=== PATIENT | male | born 1980 | race African-American/Black ===

== ENCOUNTER 2019-10-06 22:27 | Emergency (ER) | payer OTHER ==
[2019-10-06] MEDS ORDERED: ONDANSETRON 4 MG/2 ML VIAL ONE (23:03)
[2019-10-06] MEDS ORDERED: MECLIZINE HCL 12.5 MG TAB ONE (23:03)
[2019-10-06] MEDS ORDERED: NA CHLORIDE 0.9% 1,000 ML ONE (23:03)
[2019-10-06 23:08] LABS: Absolute Lymphocytes (CBC) 3.2 K/uL (0.7-4.9); Basophils % 0.8 % (0-1.3); Hematocrit 46.9 % (39.6-49.0); Lymphocytes % 30.7 % (15.3-44.8); MPV 8.1 fL (7.6-11.3)
[2019-10-06 23:15] LABS: Protime INR 0.95
[2019-10-06 23:24] LABS: ALT/SGPT 47 U/L (12-78); AST/SGOT 29 U/L (15-37); Albumin 4.4 g/dL (3.4-5.0); Alkaline Phosphatase 79 U/L (45-117); BUN Blood Urea Nitrogen 41 mg/dL (7-18); Bicarbonate 23 mmol/L (21-32); Bilirubin Direct 0.2 mg/dL (0-0.2); Bilirubin Total 0.6 mg/dL (0.2-1.0); Creatine Phosphokinase 869 U/L (39-308); Glucose Level 109 mg/dL (74-106); Magnesium 2.7 mg/dL (1.8-2.4); NT PRO-BNP 30 pg/mL (<125); Potassium 3.5 mmol/L (3.5-5.1); Protein, Total 8.3 g/dL (6.4-8.2); Sodium Level 134 mmol/L (136-145); Troponin (Emerg Dept Use Only) < 0.02 ng/mL (0.0-0.045)
[2019-10-07] MEDS ORDERED: NA CHLORIDE 0.9% 2,000 ML ONE (00:26)
[2019-10-07] MEDS ORDERED: NA CHLORIDE 0.9% 1,000 ML ONE (01:14)
[2019-10-07 02:19] LABS: Potassium 3.3 mmol/L (3.5-5.1)
--- NOTE | 2019-10-07 02:33 | EDPHYS ---
Physician Documentation [facility] Name: Skye Salgado Age: 39 yrs Sex: Male : 1980 Arrival Date: 10/06/2019 Time: 22:28 Bed 2 Private MD: ED Physician Robby Crooks HPI: 10/05 23:17 This 39 yrs old Black Male presents to ER via Ambulatory with complaints of Dizziness, jmm Vomiting, Diarrhea. 23:17 The patient presents with dizziness, lightheadedness, feeling off balance. Onset: The jmm symptoms/episode began/occurred acutely, 12 hour(s) ago. Modifying factors: The symptoms are alleviated by nothing. Associated signs and symptoms: Pertinent positives: nausea, palpitations, vomiting, diarrhea. The patient has experienced a previous episode. Patient states symptoms initially occurred while working outside. . Historical: - Allergies: 22:35 No Known Allergies; jd3 - Home Meds: 22:35 None [Active]; jd3 - PMHx: 22:35 None; jd3 - PSHx: 22:35 None; jd3 - Immunization history:: Adult Immunizations up to date. - Social history:: Smoking status: Patient reports the use of cigarette tobacco products, smokes one pack cigarettes per day. ROS: 23:17 Cardiovascular: Negative for chest pain, palpitations, and edema, Respiratory: Negative jmm for shortness of breath, cough, wheezing, and pleuritic chest pain. 23:17 Constitutional: Positive for fatigue. 23:17 Abdomen/GI: Positive for vomiting, diarrhea. 23:17 Neuro: Positive for dizziness. 23:17 All other systems are negative. Exam: 23:17 Constitutional: This is a well developed, well nourished patient who is awake, alert, jmm and in no acute distress. Head/Face: atraumatic. Eyes: EOMI, no conjunctival erythema appreciated ENT: Moist Mucus Membranes Neck: Trachea midline, Supple Chest/axilla: Normal chest wall appearance and motion. Cardiovascular: Regular rate and rhythm. No edema appreciated Respiratory: Normal respirations, no respiratory distress appreciated Abdomen/GI: Non distended, soft Back: Normal ROM Skin: General appearance color normal MS/ Extremity: Moves all extremities, no obvious deformities appreciated, no edema noted to the lower extremities Neuro: Awake and alert, normal gait Psych: Behavior is normal, Mood is normal, Patient is cooperative and pleasant 23:17 ECG was reviewed by the Attending Physician. Vital Signs: 22:34 BP 126 / 86; Pulse 104; Resp 19 S; Temp 98.3(TE); Pulse Ox 100% on R/A; Weight 95.25 kg jd3 (R); Height 6 ft. 0 in. (182.88 cm) (R); Pain 0/10; 10/06 01:53 BP 135 / 64; Pulse 76; Resp 18; Temp 98; Pulse Ox 98% on R/A; ea 02:30 BP 154 / 90; Pulse 58; Resp 18; Pulse Ox 100% ; ea 10/05 22:34 Body Mass Index 28.48 (95.25 kg, 182.88 cm) jd3 MDM: 10/05 22:50 Patient medically screened. [facility] 10/06 02:27 Data reviewed: vital signs, nurses notes. Counseling: I had a detailed discussion with [facility] the patient and/or guardian regarding: the historical points, exam findings, and any diagnostic results supporting the discharge/admit diagnosis, lab results, radiology results, the need for outpatient follow up, to return to the emergency department if symptoms worsen or persist or if there are any questions or concerns that arise at home. 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 Most likely dehydration. Imaging studies negative. Creatinine has improved with IVF. Patient is able to tolerate PO. I discussed the patient with Dr. Beach whom declined admission and stated the patient can follow up with pcp. Patient is given strict return precautions. Patient understood and agrees with the plan of care. . 10/05 22:51 Order name: Basic Metabolic Panel; Complete Time: 23:28 [facility] 10/05 22:51 Order name: CBC with Diff; Complete Time: 23:10 [facility] 10/05 22:51 Order name: LFT's; Complete Time: 23:28 [facility] 10/05 22:51 Order name: Magnesium; Complete Time: 23:28 [facility] 10/05 22:51 Order name: NT PRO-BNP; Complete Time: 23:28 [facility] 10/05 22:51 Order name: PT-INR; Complete Time: 23:28 [facility] 10/05 22:51 Order name: Troponin (emerg Dept Use Only); Complete Time: 23:28 [facility] 10/05 22:51 Order name: XRAY Chest (1 view) [facility] 10/05 22:51 Order name: CPK; Complete Time: 23:28 [facility] 10/05 22:51 Order name: CT Head Brain wo Cont [facility] 10/05 23:35 Order name: CT Stone Protocol [facility] 10/06 01:17 Order name: BMP; Complete Time: 02:26 [facility] 10/05 22:51 Order name: EKG; Complete Time: 22:52 [facility] 10/05 22:51 Order name: Cardiac monitoring; Complete Time: 22:56 [facility] 10/05 22:51 Order name: EKG - Nurse/Tech; Complete Time: 22:56 [facility] 10/05 22:51 Order name: IV Saline Lock; Complete Time: 22:56 [facility] 10/05 22:51 Order name: Labs collected and sent; Complete Time: 22:56 [facility] 10/05 22:51 Order name: O2 Per Protocol; Complete Time: 22:56 [facility] 10/05 22:51 Order name: O2 Sat Monitoring; Complete Time: 22:56 [facility] EC/21 23:17 Rate is 41 beats/min. Rhythm is regular. QRS [place] is Normal. CA interval is normal. QRS jmm interval is normal. QT interval is normal. No Q waves. T waves are Normal. No ST changes noted. Reviewed by me. Administered Medications: 23:03 Drug: NS 0.9% 1000 ml Route: IV; Rate: 1 bolus; Site: left antecubital; mg2 10/06 01:52 Follow up: Response: No adverse reaction; IV Status: Completed infusion; IV Intake: ea 1000ml 10/05 23:03 Drug: Zofran (Ondansetron) 4 mg Route: IVP; Site: left antecubital; mg2 10/06 00:47 Follow up: Response: No adverse reaction 10/05 23:03 Drug: Meclizine 50 mg Route: PO; mg2 10/06 00:47 Follow up: Response: No adverse reaction ea 00:20 Drug: NS 0.9% 1000 ml Route: IV; Rate: 1 bolus; Site: left antecubital; mg2 01:53 Follow up: Response: No adverse reaction; IV Status: Completed infusion; IV Intake: ea 1000ml 01:11 Drug: NS 0.9% 1000 ml Route: IV; Rate: 1 bolus; Site: left antecubital; ea 02:43 Follow up: Response: No adverse reaction; IV Status: Completed infusion; IV Intake: ea 1000ml Disposition: 04:45 Co-signature as Attending Physician, Robby cox Disposition: 10/07/19 02:32 Discharged to Home. Impression: Vomiting, Diarrhea, unspecified, Dehydration, Acute Kidney Injury. - Condition is Stable. - Discharge Instructions: Food Choices to Help Relieve Diarrhea, Adult, Dehydration, Adult, Nausea and Vomiting, Adult. - Prescriptions for Zofran ODT 4 mg Oral tablet,disintegrating - place 1 tablet by TRANSLINGUAL route every 4-6 hours; 20 tablet. - Medication Reconciliation Form, Thank You Letter, Antibiotic Education, Prescription Opioid Use form. - Follow up: Sidney Winston DO; When: 2 - 3 days; Reason: Recheck today's complaints, Continuance of care, Re-evaluation by your physician. Signatures: Dispatcher [employer] EDMS Robby Crooks MD MD pkHaroon Walter PA PA jmm Antunez, Elena, RN RN ea Davies, Jonathon, RN RN jCesar Mercer RN RN mg2 Corrections: (The following items were deleted from the chart) 02:34 02:30 ED course: Imaging studies negative. Creatinine has improved with IVF. Patient is [facility] able to tolerate PO. I discussed the patient with Dr. Beach whom declined admission and stated the patient can follow up with pcp. Patient is given strict return precautions. Patient understood and agrees with the plan of care. . [facility] 02:44 02:32 10/07/2019 02:32 Discharged to Home. Impression: Vomiting; Diarrhea, unspecified; ea Dehydration; Acute Kidney Injury. Condition is Stable. Forms are Medication Reconciliation Form, Thank You Letter, Antibiotic Education, Prescription Opioid Use. Follow up: Sidney Winston; When: 2 - 3 days; Reason: Recheck today's complaints, Continuance of care, Re-evaluation by your physician. [facility]
--- NOTE | 2019-10-07 02:33 | ER ---
Nurse's Notes [facility] Name: Skye Salgado Age: 39 yrs Sex: Male : 1980 Arrival Date: 10/06/2019 Time: 22:28 Bed 2 Private MD: Diagnosis: Vomiting;Diarrhea, unspecified;Dehydration;Acute Kidney Injury Presentation: 10/05 22:33 Chief complaint: Patient states: "I feel like i am having an accelerated heart rate, jd3 nausea and dizziness. last time this happened I pasted out and was told I was dehydrated.". Coronavirus screen: Proceed with normal triage. Ebola Screen: Patient negative for fever greater than or equal to 101.5 degrees Fahrenheit, and additional compatible Ebola Virus Disease symptoms. Initial Sepsis Screen: Does the patient meet any 2 criteria? No. Patient's initial sepsis screen is negative. Does the patient have a suspected source of infection? No. Patient's initial sepsis screen is negative. Risk Assessment: Do you want to hurt yourself or someone else? Patient reports no desire to harm self or others. Onset of symptoms was October 06, 2019. 22:33 Method Of Arrival: Ambulatory jd3 22:33 Acuity: FLOYD 3 jd3 Historical: - Allergies: 22:35 No Known Allergies; jd3 - Home Meds: 22:35 None [Active]; jd3 - PMHx: 22:35 None; jd3 - PSHx: 22:35 None; jd3 - Immunization history:: Adult Immunizations up to date. - Social history:: Smoking status: Patient reports the use of cigarette tobacco products, smokes one pack cigarettes per day. Screenin:59 Abuse screen: Denies threats or abuse. Nutritional screening: No deficits noted. ea Tuberculosis screening: No symptoms or risk factors identified. Fall Risk IV access (20 points). Assessment: 22:58 General: Appears uncomfortable, Behavior is appropriate for age. Neuro: Level of ea Consciousness is awake, alert, obeys commands, Oriented to person, place, time, situation. Cardiovascular: Patient's skin is warm and dry. Respiratory: Airway is patent Respiratory effort is even, unlabored, Respiratory pattern is regular, symmetrical. GI: Abdomen is non-distended. Derm: Skin is pink, warm \\T\\ dry. 10/06 00:18 Reassessment: Patient and/or family updated on plan of care and expected duration. Pain ea level reassessed. Patient is alert, oriented x 3, equal unlabored respirations, skin warm/dry/pink. Returned from CT. 01:53 Reassessment: Patient and/or family updated on plan of care and expected duration. Pain ea level reassessed. Patient is alert, oriented x 3, equal unlabored respirations, skin warm/dry/pink. Patient states feeling better. Vital Signs: 10/05 22:34 BP 126 / 86; Pulse 104; Resp 19 S; Temp 98.3(TE); Pulse Ox 100% on R/A; Weight 95.25 kg jd3 (R); Height 6 ft. 0 in. (182.88 cm) (R); Pain 0/10; 10/06 01:53 BP 135 / 64; Pulse 76; Resp 18; Temp 98; Pulse Ox 98% on R/A; ea 02:30 BP 154 / 90; Pulse 58; Resp 18; Pulse Ox 100% ; ea 10/05 22:34 Body Mass Index 28.48 (95.25 kg, 182.88 cm) jd3 ED Course: 10/05 22:28 Patient arrived in ED. ds1 22:34 Triage completed. jd3 22:35 Arm band placed on. jd3 22:38 Cesar Godfrey, SARMAD is Primary Nurse. mg2 22:46 Haroon Jacob PA is PHCP. jmm 22:46 Robby Crooks MD is Attending Physician. jmm 22:58 Inserted saline lock: 20 gauge in left antecubital area, using aseptic technique. Blood ea collected. 23:00 Patient has correct armband on for positive identification. Bed in low position. Call ea light in reach. 23:16 CT Head Brain wo Cont In Process Unspecified. EDMS 23:19 XRAY Chest (1 view) In Process Unspecified. EDMS 10/06 00:41 CT Stone Protocol In Process Unspecified. EDMS 02:31 Sidney Winston DO is Referral Physician. jmm 02:42 No provider procedures requiring assistance completed. IV discontinued, intact, ea bleeding controlled, No redness/swelling at site. Pressure dressing applied. Administered Medications: 10/05 23:03 Drug: NS 0.9% 1000 ml Route: IV; Rate: 1 bolus; Site: left antecubital; mg2 10/06 01:52 Follow up: Response: No adverse reaction; IV Status: Completed infusion; IV Intake: ea 1000ml 10/05 23:03 Drug: Zofran (Ondansetron) 4 mg Route: IVP; Site: left antecubital; mg2 10/06 00:47 Follow up: Response: No adverse reaction ea 10/05 23:03 Drug: Meclizine 50 mg Route: PO; mg2 10/06 00:47 Follow up: Response: No adverse reaction ea 00:20 Drug: NS 0.9% 1000 ml Route: IV; Rate: 1 bolus; Site: left antecubital; mg2 01:53 Follow up: Response: No adverse reaction; IV Status: Completed infusion; IV Intake: ea 1000ml 01:11 Drug: NS 0.9% 1000 ml Route: IV; Rate: 1 bolus; Site: left antecubital; ea 02:43 Follow up: Response: No adverse reaction; IV Status: Completed infusion; IV Intake: ea 1000ml Intake: 01:52 IV: 1000ml; Total: 1000ml. ea 01:53 IV: 1000ml; Total: 2000ml. ea 02:43 IV: 1000ml; Total: 3000ml. ea Outcome: 02:32 Discharge ordered by . abdelrahman 02:42 Discharged to home ambulatory. ea 02:42 Condition: stable 02:42 Discharge instructions given to patient, Instructed on discharge instructions, follow up and referral plans. Demonstrated understanding of instructions, follow-up care, medications, Prescriptions given X 1. 02:44 Patient left the ED. ea Signatures: Dispatcher [employer] EDMS Haroon Jacob PA PA jmm Sanford, Demi ds1 Larissa Roberto RN RN Sim Neumann RN RN jd3 Cesar Godfrey RN RN mg2
--- NOTE | 2019-10-07 08:20 | RAD REPORT ---
EXAM DESCRIPTION: RAD - Chest Single View - 10/06/2019 11:19 pm CLINICAL HISTORY: lightheadedness Chest pain. COMPARISON: No comparisons FINDINGS: Portable technique limits examination quality. Interstitial lung markings are mildly prominent which could indicate mild interstitial pneumonitis. T he heart is normal in size. No displaced fractures.
--- NOTE | 2019-10-07 10:26 | RAD REPORT ---
EXAM DESCRIPTION: Stone Protocol CLINICAL HISTORY: Vomiting, diarrhea COMPARISON: None. TECHNIQUE: CT ABDOMEN PELVIS WITHOUT IV CONTRAST on 10/06/2019 11:35 PM CDT This exam was performed according to our departmental dose-optimization program, which includes autom ated exposure control, adjustment of the mA and/or kV according to patient size and/or use of iterati ve reconstruction technique. FINDINGS: Lower lungs are clear. Abdomen: The liver is normal in appearance. There is no biliary dilatation. Gallbladder is normal in appearance. The pancreas and spleen are normal in appearance. The adrenal glands and kidneys are unre markable. Abdominal aorta is normal in course and caliber without aneurysm. There is no free air. There is no r etroperitoneal adenopathy. Pelvis: There is no bowel obstruction. Urinary bladder is unremarkable. There is no free fluid. Appen lyle is normal. Skeleton: There are no acute osseous findings. No suspicious bony lesions. IMPRESSION: No acute process. Electronically signed by: Berto Vázquez MD 10/07/2019 12:50 AM CDT Due to temporary technical issues with the PACS/Fluency reporting system, reports are being signed by the in house radiologist without review as a courtesy to ensure prompt reporting. The interpreting r adiologist is fully responsible for the content of the report.
--- NOTE | 2019-10-07 10:32 | RAD REPORT ---
EXAM DESCRIPTION: Head Brain Wo Cont CLINICAL HISTORY: 39 years Male lightheadedness TECHNIQUE: Contiguous axial CT images obtained through the brain without IV contrast. Coronal and sa gittal reformats also provided. This CT exam was performed according to our departmental dose-optimization program, which includes on e or more of the following dose reduction techniques: automated exposure control, adjustment of the m A and/or kV according to patient size, and/or use of iterative reconstruction technique. COMPARISON: No prior exams provided for comparison. FINDINGS: There is no intracranial hemorrhage, extra-axial collection, or acute transcortical infarc tion. The ventricles are normal in size and contour without mass-effect or midline shift. Osseous structures are normal. The paranasal sinuses and mastoid air cells are clear. IMPRESSION: No acute intracranial abnormalities. Electronically signed by: Yu Decker MD 10/06/2019 11:27 PM CDT Due to temporary technical issues with the PACS/Fluency reporting system, reports are being signed by the in house radiologist without review as a courtesy to ensure prompt reporting. The interpreting r adiologist is fully responsible for the content of the report.
--- NOTE | 2019-10-07 12:32 | EKG ---
Test Date: 2019-10-06 Test Time: 22:52:56 [employer]ier: AMBROSIO MEASUREMENT RESULTS: Intervals: Rate: 89 NH: 154 QRSD: 92 QT: 366 QTc: 445 [place]: P: 63 NH: 154 QRS: 34 T: 56 INTERPRETIVE STATEMENTS: Normal sinus rhythm Normal ECG No previous ECG available for comparison Electronically Signed On 10-07-19 12:31:15 CDT by Maurice Pitts
[2019-10-07 17:50] VITALS: TEMP 98
[2019-10-07 17:51] VITALS: BP 154/90; O2SAT 100
== END 2019-10-07 02:44 | disposition home or self-care (01) ==
LOC: ER 22:27
DX: E86.0 Dehydration (principal); R19.7 Diarrhea, unspecified; N17.9 Acute kidney failure, unspecified; F17.210 Nicotine dependence, cigarettes, uncomplicated
CPT/HCPCS: 93005; 85025; 80048 ×2; 36415; 83735; 82550; 85610; 80076; 84484; 83880; 70450; 76377; 74176; 71045; J8597; J2405; 96361; 96374; 99284; J7030